=== PATIENT | female | born 1965 | race Caucasian/White ===

== ENCOUNTER 2016-12-23 08:24 | Emergency (ER) | payer OTHER ==
[2016-12-23 08:32] VITALS: BP 150/95
== END 2016-12-23 09:04 | disposition home or self-care (01) ==
LOC: ED 08:24
DX: H10.33 Unspecified acute conjunctivitis, bilateral (principal)

== ENCOUNTER 2019-09-17 01:27 | Emergency (ER) | payer OTHER ==
[~2019-09-17] VITALS: Ht 154.9 cm; Wt 60.8 kg
[2019-09-17 01:36] VITALS: Ht 154.9 cm; Wt 60.8 kg
[2019-09-17 02:22] LABS: BASOPHIL % 0.1 % (0-2); PLATELET COUNT 255 x10^3mcL (130-400); RED CELL DISTRIBUTION WIDTH 13.6 % (11.5-14.5)
[2019-09-17 02:36] LABS: CALCIUM 8.2 mg/dL (8.5-10.1); CARBON DIOXIDE 28.9 mmol/L (21-32); CHLORIDE SERUM 106 mmol/L (98-107); CREATININE SERUM 0.6 mg/dL (0.6-1.0); GFR1 > 60 mL/min; GLUCOSE SERUM 121 mg/dL (74-106); POTASSIUM SERUM 3.3 mmol/L (3.5-5.1); SODIUM SERUM 142 mmol/L (136-145)
[2019-09-17 02:41] LABS: ALKALINE PHOSPHATASE 86 U/L (46-116); ALT/SGPT 36 U/L (14-59); AST/SGOT 34 U/L (15-37); BILIRUBIN TOTAL 0.34 mg/dL (0.20-1.00); TOTAL PROTEIN, SERUM 6.5 g/dL (6.4-8.2)
[2019-09-17 02:44] LABS: ALBUMIN 2.3 g/dL (3.4-5.0)
[2019-09-17] MEDS ORDERED: LEVAQUIN750 MG PO (03:12)
[2019-09-17] MEDS ORDERED: AMERINET C40 MG/0.4 IJ (03:13)
[2019-09-17] MEDS ORDERED: TYLENOL EXTRA500 M3 PO (03:14)
[2019-09-17] MEDS ORDERED: QUALITY CHOICE325 MG PO (03:15)
[2019-09-17 07:41] VITALS: BP 118/81
== END 2019-09-17 07:41 | disposition short-term general hospital (02) ==
LOC: ED 01:27
PROVIDERS: Emergency Medicine
DX: J18.1 Lobar pneumonia, unspecified organism (principal); J95.89 Other postprocedural complications and disorders of respiratory system, not elsewhere classified
CPT/HCPCS: 83880; 85378; 87804; J0456; J0696; J1200; J1885; J2270; J2405; J7050; J7060; Q0092; Q9967